=== PATIENT | male | born 1985 | race African-American/Black ===

== ENCOUNTER 2024-12-12 17:51 | Emergency (ER) | payer MEDICAID, OTHER ==
[~2024-12-12] VITALS: Ht 165.1 cm; Wt 64.0 kg
[2024-12-12 17:59] VITALS: BP 120/54; PULSE 86; RESP 16; TEMP 36.7; O2SAT 97
== END 2024-12-12 18:14 | disposition left against medical advice (07) ==
LOC: ER 17:51
DX: M79.673 Pain in unspecified foot (principal)
CPT/HCPCS: 99281